=== PATIENT | male | born 1985 | race Caucasian/White ===

== ENCOUNTER 2021-05-12 09:13 | Emergency (ER) | payer MEDICAID, OTHER, SELFPAY ==
[~2021-05-12] VITALS: Ht 167.6 cm; Wt 75.0 kg
--- NOTE | 2021-05-12 09:25 | NUR ---
Dr Chaudhari at bedside to interview pt.
[2021-05-12 09:57] LABS: MEAN CORPUSCULAR HEMOGLOBIN 21.9 pg (27.5-34.5); MEAN CORPUSCULAR HGB CONC 30.8 g/dL (33.2-36.2); MEAN PLATELET VOLUME 9.2 fL (7.4-10.4); PLATELET COUNT 218 x10^3/uL (130-400); RED BLOOD COUNT 5.02 x10^6/uL (4.38-5.82); RED CELL DISTRIBUTION WIDTH 21.4 % (9.4-14.8)
[2021-05-12 10:02] LABS: ALANINE AMINOTRANSFERASE 112 U/L (12-78); ALBUMIN 3.5 g/dL (3.4-5.0); ANION GAP 7 mmol/L (5-15); CALCIUM 8.8 mg/dL (8.5-10.1); CHLORIDE 110 mmol/L (98-107); CREATININE 0.69 mg/dL (0.7-1.3)
[2021-05-12 10:04] LABS: ALKALINE PHOSPHATASE 92 U/L (45-117); BILIRUBIN,TOTAL 0.4 mg/dL (0.2-1.0)
--- NOTE | 2021-05-12 10:05 | NUR ---
Pt on phone texting, in no acute distress waiting for labs and dispo.
--- NOTE | 2021-05-12 10:34 | NUR ---
DC ambulatory to f/u with his pcp return to ER if further concerns. VSS.
[2021-05-12 10:59] LABS: ANISOCYTOSIS 1+; BAND#(MANUAL) 0.29 x10^3/uL; BANDS%(MANUAL) 5 % (0-7); EOS#(MANUAL) 0.06 x10^3/uL (0.0-0.4); EOS% (MANUAL) 1 % (1-7); LYMPH#(MANUAL) 0.91 x10^3/uL (1-3.4); LYMPHS% (MANUAL) 16 % (22-44); MONOS#(MANUAL) 0.34 x10^3/uL (0.3-2.7); MONOS% (MANUAL) 6 % (2-9); SEGS% (MANUAL) 72 % (42-75)
[2021-05-12 11:00] LABS: <PLATELET ESTIMATE> ADEQUATE; <PLT MORPHOLOGY> NORMAL PLT MORPH; HYPOCHROMIA 1+; MICROCYTOSIS 2+; OVALOCYTES 1+; TEAR DROPS 1+
== END 2021-05-12 11:13 | disposition home or self-care (01) ==
LOC: EDBD 09:13 → ED 11:00
DX: K29.00 Acute gastritis without bleeding (principal); D64.9 Anemia, unspecified
CPT/HCPCS: 36415; 80053; 83605; 85025; 99283